=== PATIENT | female | born 1995 ===

== ENCOUNTER 2025-05-05 05:41 | Emergency (ER) | payer BC ==
[2025-05-05 06:11] LABS: BASOPHILS PERCENT AUTO 0.1 % (0.0-1.0); EOSINOPHILS PERCENT AUTO 0.1 % (1.0-3.0); LYMPHOCYTES PERCENT AUTO 5.7 % (20.5-50.1); MONOCYTES PERCENT AUTO 7.0 % (2-8); NEUTROPHILS PERCENT AUTO 87.1 % (42.2-75.2); PLATELET COUNT,PLT 210 10^3/uL (150-450); RED BLOOD CELL COUNT 3.57 10^6/uL (4.2-5.4); WHITE BLOOD CELL COUNT,WBC 15.0 10^3/uL (5.0-10.0)
[2025-05-05 06:31] LABS: ALANINE AMINOTRANSFERASE,ALT 36.0 U/L (14-59); ASPARTATE AMNIOTRANSFERASE,AST 33.0 U/L (15-37); BILIRUBIN TOTAL 0.4 mg/dL (0.2-1.0); BLOOD UREA NITROGEN,BUN 7.0 mg/dL (7-18); CARBON DIOXIDE,CO2 22.0 mmol/L (21-32); CHLORIDE,CL 101.0 mmol/L (98-107); CREATININE 0.65 mg/dL (0.55-1.02); EST CRCL DRUG DOSING (CG) 105.64 mL/min; GLUCOSE RANDOM 163.0 mg/dL (70-99); POTASSIUM,K 3.9 mmol/L (3.5-5.1); PROTEIN TOTAL,TP 7.3 g/dL (6.4-8.2); SODIUM,NA 134.0 mmol/L (136-145)
[2025-05-05 06:34] LABS: A/G RATIO 0.7; ESTIMATED GFR 122.0 mL/min (>=60)
[2025-05-05 06:53] LABS: APPEARANCE,URINE CLEAR (CLEAR); GLUCOSE,URINE 100 (NEGATIVE); OCCULT BLOOD,URINE NEGATIVE (NEGATIVE)
[2025-05-05 07:07] LABS: EPITHELIAL CELLS,URINE MODERATE /HPF (NOT SEEN)
== END 2025-05-05 09:30 | disposition other institution (70) ==
LOC: DL.ED 05:41
DX: O99.891 Other specified diseases and conditions complicating pregnancy (principal); R10.24 Suprapubic pain; R50.9 Fever, unspecified; R00.0 Tachycardia, unspecified; R30.0 Dysuria; Z3A.24 24 weeks gestation of pregnancy
CPT/HCPCS: 36415; 76705; 80053; 81001; 83690; 85025; 87040; 87086; 87428; 96361; 96374; 99284; 99285; A9270; J0696; J7030

== ENCOUNTER 2025-05-05 09:45 | Observation (INO) | payer BC ==
[2025-05-05] MEDS: Ketorolac 30 MG/ML SDV IVPUSH ONE (18:19)
[2025-05-05 19:01] LABS: PLATELET COUNT,PLT 181.0 10^3/uL (150-450); RED BLOOD CELL COUNT 3.31 10^6/uL (4.2-5.4); WHITE BLOOD CELL COUNT,WBC 17.7 10^3/uL (5.0-10.0)
[2025-05-05 19:19] LABS: APPEARANCE,URINE SLIGHTLY CLOUDY (CLEAR); GLUCOSE,URINE NEGATIVE (NEGATIVE); OCCULT BLOOD,URINE NEGATIVE (NEGATIVE)
[2025-05-05 19:28] LABS: ALANINE AMINOTRANSFERASE,ALT 35 U/L (14-59); ASPARTATE AMNIOTRANSFERASE,AST 30 U/L (15-37); BLOOD UREA NITROGEN,BUN 6 mg/dL (7-18); CREATININE 0.59 mg/dL (0.55-1.02); LACTATE DEHYDROGENASE,LDH 115 U/L (81-234)
[2025-05-05 19:30] LABS: ESTIMATED GFR 125 mL/min (>=60)
[2025-05-05 19:39] LABS: CREATININE,URINE RAND 176.83 mg/dL (No establ ref range); PROTEIN CREATININE RATIO,URINE 338.7 mg/g (<150.0); PROTEIN,URINE RANDOM 59.9 mg/dL (0.0-11.9)
[2025-05-06 06:37] LABS: PLATELET COUNT,PLT 175.0 10^3/uL (150-450); RED BLOOD CELL COUNT 3.15 10^6/uL (4.2-5.4); WHITE BLOOD CELL COUNT,WBC 12.4 10^3/uL (5.0-10.0)
[2025-05-06 06:52] LABS: APPEARANCE,URINE CLEAR (CLEAR); GLUCOSE,URINE NEGATIVE (NEGATIVE); OCCULT BLOOD,URINE NEGATIVE (NEGATIVE)
== END 2025-05-06 14:05 | disposition home or self-care (01) ==
LOC: DL.OBCHECK 09:45 → UNDOADMOB 09:55 → DL.MS 09:55 → UNDOADMOB 10:00 → DL.MS 10:00
PROVIDERS: ADMIT Family Medicine; ATTEND Family Medicine
DX: B99.9 Unspecified infectious disease (principal)
CPT/HCPCS: 36415; 81003; 82565; 82570; 82947; 83615; 84156; 84450; 84460; 84520; 84550; 85027; 87210; A9270; J0696; J1885; J2765; J7030